=== PATIENT | female | born 1940 | race Two or more races ===

== ENCOUNTER 2017-12-27 15:00 | Emergency (ER) | payer MEDICAID, MEDICARE, OTHER ==
[~2017-12-27] VITALS: Ht 157.5 cm; Wt 65.8 kg
[2017-12-27 15:08] VITALS: BP 212/96
[2017-12-27] MEDS ORDERED: cloNIDine HCL 0.1 MG TAB PO ONE (15:15)
[2017-12-27] MEDS ORDERED: cloNIDine HCL 0.1 MG TAB ONE (15:17)
[2017-12-27] MEDS ORDERED: BACITRACIN TOP OINT 1 UD PKG TOP ONE (16:00)
[2017-12-27] MEDS ORDERED: LIDOCAINE 1% HCL (LOCAL ANESTH.) INJ 20ML MDV ID ONE (16:00)
== END 2017-12-27 16:57 | disposition home or self-care (01) ==
LOC: ER 15:14
DX: S01.81XA Laceration without foreign body of other part of head, initial encounter (principal); I10 Essential (primary) hypertension; Z88.6 Allergy status to analgesic agent; Z88.1 Allergy status to other antibiotic agents; W01.0XXA Fall on same level from slipping, tripping and stumbling without subsequent striking against object, initial encounter; Y93.89 Activity, other specified; Y92.89 Other specified places as the place of occurrence of the external cause; Y99.8 Other external cause status
CPT/HCPCS: 12013; 70450